=== PATIENT | female | born 1995 | race African-American/Black ===

== ENCOUNTER 2018-11-28 17:00 | Emergency (ER) | payer OTHER ==
--- NOTE | 2018-11-28 19:56 | ED Physician Documentation ---
History of Present Illness - Stated complaint Stated Complaint: KAMRAN HAND RASH - Chief complaint Chief Complaint: Wound - Additonal information Additional information: Patient presents with 2 weeks of itchy rash which comes and goes in the various parts of her hand, she noticed a small lines between her fingers. Her partner also has similar symptoms. No rash elsewhere. Review of Systems Constitutional: denies: Fever Throat: denies: Oral lesions / sores Skin: reports: Rash PD PAST MEDICAL HISTORY - Past Medical History Past Medical History: No - Past Surgical History Past Surgical History: No - Present Medications Home Medications: Ambulatory Orders Medication Instructions Recorded Confirmed Permethrin 5% Cream 60 applic TOP ONCE #1 tube 11/28/18 - Allergies Allergies/Adverse Reactions: Allergies Allergy/AdvReac Type Severity Reaction Status Date / Time No Known Drug Allergies Allergy Verified 11/28/18 17:10 - Social History Does the pt smoke?: No Smoking Status: Never smoker Does the pt drink ETOH?: Yes Does the pt have substance abuse?: No - Immunizations Immunizations are current?: Yes PD ED PE NORMAL - Vitals Vital signs reviewed: Yes - General General: Alert and oriented X 3, No acute distress - Cardiac Cardiac: Strong equal pulses - Respiratory Respiratory: No respiratory distress - Derm Derm: Other (Over the bilateral hands there are several small linear burrows which are several mm in maximal length. No other lesions.) - Neuro Neuro: Alert and oriented X 3 - Psych Psych: Normal mood, Normal affect Results - Vitals Vitals: Vital Signs - 24 hr 11/28/18 11/28/18 11/28/18 17:08 19:27 20:43 Temperature 36.5 C Heart Rate 74 81 92 Respiratory 16 18 16 Rate Blood Pressure 115/63 132/85 H 135/50 H O2 Saturation 100 99 100 Oxygen O2 Source Room air PD MEDICAL DECISION MAKING - ED course Complexity details: considered differential (Scabies, contact dermatitis, eczema) ED course: Pt presents with classic rash and symptoms of scabies and her partner has identical symptoms. I prescribed permethrin and gave instructions on its use. Follow up and return precuations discussed. Departure - Departure Disposition: 01 Home, Self Care Clinical Impression: Scabies Condition: Good Instructions: ED Scabies Prescriptions: Permethrin 5% Cream 60 applic TOP ONCE #1 tube Comments: It appears that you have scabies. Please use the permethrin as prescribed. If you have continued symptoms or new rash return to the emergency department or see your primary care provider. Discharge Date/Time: 11/28/18 20:43
[2018-11-28 20:44] VITALS: BP 135/50
== END 2018-11-28 20:43 | disposition home or self-care (01) ==
LOC: ED 17:00
DX: B86 Scabies (principal)
CPT/HCPCS: 99282; 99283